=== PATIENT | female | born 1940 | race Caucasian/White ===

== ENCOUNTER → 2017-07-17 | Outpatient (CLI) | payer BC | END | disposition home or self-care (01) | LOC: C.RDSM 15:11 | PROVIDERS: ATTEND Orthopaedic Surgery | DX: R52 Pain, unspecified (principal) ==

== ENCOUNTER 2022-04-01 06:52 | Observation (INO) ==
[2022-04-01] MEDS ORDERED: niCARdipine HCL INJ 2.5 MG/ML 10 ML AMP ONE (07:21)
[2022-04-01] MEDS ORDERED: HEPARIN (PORCINE) 1000 UNIT/ML 10 ML (CATH LAB USE ONLY) ONE (07:21)
[2022-04-01] MEDS ORDERED: NITROGLYCERIN/D5W 100MCG/ML 20ML SYR ONE (07:21)
--- NOTE | 2022-04-01 08:30 | Pre Anesthesia Assessment ---
Date of Service April 01, 2022 Pre Sedation Assessment Vital Signs Pulse Resp BP Pulse Ox O2 Del Method 04/01/22 07:12 71 16 170/82 H 98 Room Air Cardiovascular + regular rate and + regular rhythm + S1 normal, + S2 normal and + murmur + femoral pulses present and + radial pulses present; no JVD no edema Respiratory normal respiratory effort, lungs clear to auscultation Pre-Sedation Airway Assessment Smoking Status: Never smoker Short, Thick Neck: No Thyromental Distance: > or= 3.5 Finger Breadths Oral Cavity: + WNL Mallampati Class: III ASA: ASA3 NPO Status Date of Last Intake of Fluids: 03/31/22 Time of Last Intake of Fluids: 20:00 Date of Last Intake of Solid Food: 03/31/22 Time of Last Intake of Solid Foods: 20:00 Notes The planned sedation has been discussed with the patient. Informed Consent was obtained. I have identified the patient, determined the appropriateness of sedation and have assessed the patient immediately prior to the procedure. All medicine(s) and interventions are by my order.
--- NOTE | 2022-04-01 08:31 | History & Physical Bridge Note ---
Date of Service April 01, 2022 History & Physical Bridge Note I have examined the patient, reviewed the History & Physical and in the interval since the performance of the History & Physical I have noted the following changes of clinical significance: no changes noted
[2022-04-01] MEDS ORDERED: MIDAZOLAM HCL 1 MG/ML 2ML VIAL ONE (08:38)
[2022-04-01] MEDS ORDERED: fentaNYL citrate 100 MCG/2 ML VIAL ONE (08:38)
--- NOTE | 2022-04-01 09:24 | Cardiac Catheterization ---
Cardiac Cath Procedure Brief Procedure Date April 01, 2022 Pre-Procedure Diagnosis Pre-Procedure Diagnosis: Angina and Positive Stress Test AUC Score AUC Score: 7 Post-Procedure Diagnosis Post-Procedure Diagnosis: Severe CAD Procedure(s) Performed Procedure(s) Performed: Coronary Angiography and Left Heart Cath Private Branch Exchange Operator Jb Mendoza MD Profiling Machine Setup Operator(s) Morteza Plummer Estimated Blood Loss Estimated Blood Loss: <15cc Medication(s) Medication(s): Fentanyl (12.5 mcg IV), Heparin (5000 units IV), Lidocaine 1% (Local infiltration access site), Nicardipine (250 mcg intra-arterial after arterial sheath insertion) and Versed (1 mg IV) Preliminary Findings Right dominant coronary anatomy Moderate diffuse coronary atherosclerosis all vessels Left anterior descending with moderate eccentric lesion at D1 S1 Right coronary artery very large caliber vessel with ectasia, eccentric 80% stenosis proximal right coronary artery, 50% mid Normal left end-diastolic pressure Recommendations Recommendations: Management Recommendatons (Patient will be referred for FFR interrogation of the mid left anterior descending,possible right coronary intervention) Specimens Specimens: None Fluids (cc crystalloids) Fluids (cc crystalloids): 75 Anesthesia Start time: , stop time: 04 21 Getachew Abrams RN Procedural Complication(s) None
[2022-04-01] MEDS ORDERED: ADENOSINE IV SOLN 3 MG/ML 20 ML VIAL IV ONE (09:29)
--- NOTE | 2022-04-01 09:52 | Cardiac Catheterization ---
Cardiac Cath Procedure Full Procedure Date April 01, 2022 Pre-Procedure Diagnosis Pre-Procedure Diagnosis: Angina and Positive Stress Test AUC Score AUC Score: 7 Post-Procedure Diagnosis Post-Procedure Diagnosis: Severe CAD Procedure(s) Performed Procedure(s) Performed: Coronary Angiography and Left Heart Cath Interactive Media Designer Jb Mendoza MD X Ray Tech(s) Morteza Plummer Estimated Blood Loss Estimated Blood Loss: <15cc Medication(s) Medication(s): Fentanyl (12.5 mcg IV), Heparin (5000 units IV), Lidocaine 1% (Local infiltration access site), Nicardipine (250 mcg intra-arterial after arterial sheath insertion) and Versed (1 mg IV) Summary of Findings Impression: Right dominant coronary anatomy Diffuse coronary atherosclerosis moderate all vessels Moderate atherosclerosis proximal left anterior descending 40 to 50% involving origin of diagonal Small to moderate sized first diagonal with diffuse disease Large-caliber right coronary artery with eccentric and ectatic disease 80% in proximal portion with additional disease of 60% mid vessel 70% PDA Plan: Patient referred for FFR of proximal LAD, right coronary intervention Procedures: Left heart catheterization, coronary angiography Access: Right radial Catheters: Long 6 Finnish radial sheath, 5 Finnish [place] ,5 Finnish JR 5, 5 Finnish straight pigtail Procedural note: Moderate tortuosity, right subclavian/innominate artery Hemodynamics Rest Ao:: 115/56/80 Final Ao: 140/60 LV: 144/3 Recommendations Recommendations: Management Recommendatons (Patient will be referred for FFR interrogation of the mid left anterior descending,possible right coronary intervention) Specimens Specimens: None Radiation Exposure (mGy) 1095 Contrast (mls) 80 Fluids (cc crystalloids) Fluids (cc crystalloids): 75 Anesthesia Start time: , stop time: 04 21 Getachew Abrams RN Procedural Complication(s) None I attest to the content of the Intraoperative Record and any orders documented therein. Any exceptions are noted below. 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 Cardiovascular risk factors include radiation to the chest with prior breast carcinoma CAD Presenation: Positive Stress Test and Stable angina Anginal Classification: CCS III Heart Failure: No Cardiogenic Shock within 24 Hours: No Cardiac Arrest within 24 Hours: No Imaging Studies Past 6 Months: Yes Stress Studies Past 6 Months: Yes Standard Exercise Test: No Stress Echocardiogram: No Stress Testing w/SPECT MPI: Yes - Positive Cardiac CTA: No Coronary Anatomy Dominant: Right Left Main (% Stenosis): Normal LAD (% Stenosis): Proximal (140) D2 (% Stenosis): Proximal (Diffuse disease, small vessel) Circumflex (% Stenosis): Proximal (30-40) OM1 (% Stenosis): Normal OM2 (% Stenosis): Normal RCA (% Stenosis): Proximal (Eccentric 80 with ectasia) and Mid (60) R PDA (% Stenosis): Proximal (60-70) Left Ventricular Angiography EF (%): N/A Diagnostic Physicians Name: Jb Mendoza MD Status: Elective Closure Device Percutaneous Entry Location: Radial Recommendations: Management Recommendatons (Patient will be referred for FFR interrogation of the mid left anterior descending,possible right coronary intervention)
[2022-04-01] MEDS ORDERED: CLOPIDOGREL BISULFATE 300 MG TAB ONE (10:12)
[2022-04-01] MEDS ORDERED: ONDANSETRON INJ 2 MG/ML 2 ML VIAL IV PRN (11:09)
[2022-04-01] MEDS ORDERED: ACETAMINOPHEN 500 MG TAB PO PRN (11:13)
[2022-04-01] MEDS ORDERED: SODIUM CHLORIDE 0.9% 1000ML 1,000 ML IV SCH (11:15)
--- NOTE | 2022-04-01 11:18 | Post Anesthesia Assessment ---
Date of Service April 01, 2022 Post Sedation Assessment Vital Signs Pulse Resp BP Pulse Ox O2 Del Method 04/01/22 10:55 59 L 20 152/82 H 99 Room Air 04/01/22 10:40 59 L 20 152/82 H 99 Room Air 04/01/22 10:25 58 L 18 146/75 H 95 Room Air 04/01/22 07:12 71 16 170/82 H 98 Room Air Recovery Score Activity: Moves 4 extremities Respiration: Deep Breath/Cough Circulation: +/-20% PreAnes Value Consciousness: Fully Awake Oxygen Saturation: > 92% On Room Air Post Anesthesia Score: 10 Discharge Sedation Level of Care: Fast Track Phase II Post Sedation Plan On clinical assessment, the patient appears to have tolerated the sedation without complications. Patient is recovering as anticipated. Patient will continue to be monitored by nursing and may be discharged when jacqueline tion discharge criteria are met per below protocol. Upon Completions of procedure up to 15 minutes continue every 5 minute vital signs and the P.A.R. score; then discharge to a Phase I or Fast Track to Phase II per the following guidelines: * Discharge Patient to appropriate Phase II area if PAR is 8 or greater or return to pre- procedure baseline. The post - procedure orders will be as directed. * If PAR score is less than 8 or not return to pre-procedure baseline then patient will follow Phase I monitoring till PAR is reached for Phase II. The Phase I may be done in procedure room or may call to secure a Phase I area. * If naloxone or flumazenil are used for reversal, hold in Phase I for continued monitoring from when last reversal dose was given for a minimum of 60 minutes or longer pending the nurse and/or physician discretion of patient condition before discharge to Phase II. Please call the Sedation Physician to re-evaluate and complete post-note for discharge to Phase II area. Do NOT discharge from procedure sedation or Phase 1 until post- sedation evaluation note is complete by procedure /sedation MD Sedation Discharge Instructions to be given to the patient at discharge to home.
--- NOTE | 2022-04-01 11:20 | Post Operative Brief Note ---
Cardiology Brief Post Op Date of Surgery April 01, 2022 Pre & Post Diagnosis CAD Procedure PCI Hvac Operations Technician Cj Clayton MD Rubber Factory Worker Deibler Estimated Blood Loss 10 Findings See Below Moderate nonobstructive proximal LAD disease (FFR 0.94). Successful PCI of proximal to mid RCA with single MULUGETA (4.0 x 34 mm [place]) Anesthesia Type RN Sedation Complications none Disposition Accompanied Patient To Recovery: No Disposition: PCU Overlapping Procedure I was present for: the critical portions of procedure. I was immediately available: during the entire case. Back up surgeon: was not required during procedure.
[2022-04-01] MEDS ORDERED: LIDOCAINE 1% LOCAL 20 ML VIAL ONE (11:48)
--- NOTE | 2022-04-01 12:09 | Hospitalist Consultation ---
Date of Consultation April 01, 2022 Assessment & Plan (1) CAD (coronary artery disease): (2) S/P right coronary artery (RCA) stent placement: - S/p cardiac cath via R wrist by Dr. Clayton and Dr. Mendoza today , found to have mid RCA lesions dilated and MULUGETA 4.0 x34 mm [place]. 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 Whyte. If you have any questions or concerns please do not hesitate to call. At this time medicine will follow along. Supervising Physician Co-Signing Physician Notes 82 yo F w/ PMH of HTN, HLD, breast Ca s/p mastectomy/chemoradiation presented to our hosp for scheduled Heart Cath after positive lexiscan stress test as OP. She received RCA stent. ROS is negative and patient is chest pain free at bedside exam. Pt being followed by cardiology. Resume other home meds as able. Will get labs in AM. Monitor over tele. Upon Exam GENERAL: Alert and oriented x3. NAD, on RA. Class II obesity. HEENT: No pallor, no icterus. Pupils equal, round and reactive to light. Oral mucosa moist. NECK: No JVD, no neck masses. HEART: S1 and S2 heard. Regular rate and rhythm. No murmur, no gallop. RESPIRATORY SYSTEM: Normal AP diameter. No accessory muscle use. No wheezing, no crackles. ABDOMEN: Soft, bowel sounds present, nontender, no distention. CENTRAL NERVOUS SYSTEM: No facial droop. Speech is clear. Obeys simple commands. Moves extremities. EXTREMITIES: No edema, no erythema seen. I have seen and examined the patient and have discussed the case with the provider above. I agree with the assessment and plan as stated. History of Present Illness Reason for Consultation: Medical management Requesting Physician: Dr. Reji Ramirez Attending Physician: Jb Mendoza MD History of Present Illness This is an 82 yo F with PMhx of HTN, HLD, PVCs, hx of breast cancer in 2019 s/p lumpectomy, mastectomy, chemo x 6 months and 30 XRT treatments, who presents to the hospital after scheduled cardiac catheterization by Dr. Mendoza and Dr. Clayton. She underwent Lexiscan stress test to evaluate ischemia given her symptoms for possible angina in the beginning of March. She had described having chest pain, neck pain and jaw pain and reported that she has these symptoms. Occasionally, last time was around her visit in January. She does report fatigue with activities and some dyspnea when doing exertional activity such as climbing stairs. Currently she denies any chest pain, shortness of breath, palpitations, lightheadedness or dizziness, orthopnea or swelling. She has been taking baby aspirin, statin and losartan. Metoprolol succinate 25 mg was added to her regimen on 03/13/2022. She did not take his medication this morning as directed. She feels quite well status post cardiac cath currently. Allergies Allergy/AdvReac Type Severity Reaction Status Date / Time No Known Allergies Allergy Verified 04/01/22 07:00 Home Medications Medication Instructions Recorded Confirmed Type acetaminophen 500 mg tablet 1,000 mg PO Q4H PRN Pain 05/31/19 04/01/22 History (Tylenol Extra Strength) aspirin 81 mg tablet,delayed 81 mg PO DAILY 05/31/19 04/01/22 History release (Adult Aspirin Regimen) atorvastatin 40 mg tablet 40 mg PO DAILY 05/31/19 04/01/22 History diphenhydramine HCl 25 mg tablet 25 mg PO Q6H PRN Allergic Reaction 05/31/19 04/01/22 History (Benadryl Allergy) levothyroxine 112 mcg tablet 112 mcg PO DAILY 05/31/19 04/01/22 History (Levoxyl) losartan 25 mg tablet (Cozaar) 25 mg PO DAILY 05/31/19 04/01/22 History melatonin 3 mg capsule 3 mg PO HS PRN Insomnia 05/31/19 04/01/22 History meloxicam 15 mg tablet 15 mg PO DAILY PRN pain 05/31/19 04/01/22 History sertraline 50 mg tablet (Zoloft) 50 mg PO DAILY 05/31/19 04/01/22 History calcium carb-vit D2-minerals 1 tab PO DAILY 04/01/22 04/01/22 History gabapentin 300 mg capsule 300 mg PO HS 04/01/22 04/01/22 History letrozole 2.5 mg tablet (Femara) 2.5 mg PO DAILY 04/01/22 04/01/22 History metoprolol succinate 25 mg 25 mg PO DAILY 04/01/22 04/01/22 History tablet,extended release 24 hr pantoprazole 40 mg tablet,delayed 40 mg PO DAILY 04/01/22 04/01/22 History release Patient History Medical History (Updated 04/01/22 @ 13:05 by Berenice Turner PA-C) Breast cancer Right - Diagnosed 08/06/19 - Invasive Ductal CA - ER/ND+, HER2- Depression Dyslipidemia History of chemotherapy AC x 4 (Every 3 weeks) followed by Taxol x 12 (weekly) with Dr. 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 Brother Melanoma Daughter No problems noted. Social History (Updated 05/31/19 @ 09:37 by Josy Hutchins RN) Smoking Status: Never smoker Hx Alcohol Use: No Hx Substance Use: No Preferred Language: Peruvian Communication Ability: Effective Visual Impairment: Limited Hearing Ability: Hard of Hearing Bead Supervisor Required: No Beliefs That Will Affect Care: None marital status: Current Living Situation: Family Current Living Situation Comment: Grandson lives with patient current occupational status: retired current occupation: [employer] Other Information That Helps Us Care for You: No Feels Safe at Home: Yes Safety Concerns: Feels Safe At This Time Childhood Exposure to Second-Hand Smoke: Yes (Father smoked in home ) caffeine: Yes (Diet Soda Daily ) during the past year weight has: decreased > 10 lbs Dental Care, Regularly: Yes Assistive Devices: None Review of Systems Review of Systems: Constitutional: No fever, sweats or chills Eyes: No diplopia, no worsening or blurred vision ENT: normal hearing, no trouble swallowing Respiratory: No cough, sputum, dyspnea at rest or on exertion Cardiovascular: No chest pain, tightness or palpitations Abdomen: No pain, nausea, vomiting, diarrhea or constipation Musculoskeletal: No joint pain, calf pain, swelling Neurologic: No weakness, numbness/tingling, or balance problems Psychiatric: No anxiety or depression Skin: No rash or itch Physical Exam Physical Exam: General: awake, alert, no apparent distress Head: Normocephalic, atraumatic ENT: PERRL, EOMI, no pharyngeal exudate, mucous membranes moist Chest: Clear to auscultation, on room air, no adventitious breath sounds Cardiac: Regular rate and rhythm, no murmur, no JVD, normal peripheral pulses, good capillary refill Abdominal: NABS x 4 quadrants, soft, nondistended, nontender to palpation, no rebound or guarding Extremities: TR band on right wrist, otherwise normal inspection, no peripheral edema or erythema, calfs nontender to palpation Psych: Normal mood and affect Neuro: AAO x 3, strength intact bilaterally and rated 5/5, no motor deficits, speech is clear, no peripheral sensory deficits Results & Data Results & Data ([facility]) Vital Signs (Past 12 Hours) Vital Signs Pulse Resp BP Pulse Ox O2 Del Method 04/01/22 11:55 63 20 156/100 H 98 Room Air 04/01/22 11:40 86 20 158/109 H 98 Room Air 04/01/22 11:25 76 20 173/111 H 99 Room Air 04/01/22 11:10 60 20 158/77 H 99 Room Air 04/01/22 10:55 59 L 20 152/82 H 99 Room Air 04/01/22 10:40 62 20 152/82 H 99 Room Air 04/01/22 10:25 58 L 18 146/75 H 95 Room Air 04/01/22 07:12 71 16 170/82 H 98 Room Air
--- NOTE | 2022-04-01 12:21 | Cardiac Catheterization ---
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 Cardiac Status Clinical evaluation leading to the procedure CAD Presenation: Positive Stress Test Anginal Classification: CCS III Diagnostic Physicians Name: Cj Clayton MD Closure Device Recommendations: PCI without planned CABG Cardiac Cath Procedure Full Procedure Date April 01, 2022 Pre-Procedure Diagnosis Pre-Procedure Diagnosis: Angina, Positive Stress Test and CAD AUC Score AUC Score: 8 Post-Procedure Diagnosis Post-Procedure Diagnosis: Severe CAD and Successful PCI Procedure(s) Performed Procedure(s) Performed: Coronary Angiography, Drug Eluting Stent and Fractional Flow [place] Dental Scheduling Coordinator Cj Clayton MD Patient Scheduler(s) [place] Estimated Blood Loss Estimated Blood Loss: <15cc Medication(s) Medication(s): Clopidogrel, Fentanyl (12.5 mcg IV), Heparin (5000 units IV), Nicardipine (250 mcg intra-arterial after arterial sheath insertion), Nitroglycerin and Versed (1 mg IV) Summary of Findings Indication: Abnormal stress test Access: 6 Fr right radial artery Catheters: EBU 3.5 guide, AR-1 guide Findings: For full details of patient's coronary angiography please see cath report dictated by Dr. Mendoza. Briefly, patient found to have mild to moderate proximal LAD disease and severe mid RCA disease. Decision to FFR LAD and proceed with PCI of RCA LAD disease nonobstructive. FFR of LAD procedure: -Left main cannulated with EBU 3.5 guide -BMW wire placed into distal LAD -ACIST Catheter placed across stenosis -Pd/Pa 0.98 -FFR 0.94 -Coronary angiography revealed no apparent complications post wire/catheter removal -- PCI of RCA-- Antithrombotic therapy: Heparin, clopidogrel Procedure: RCA cannulated with AR-1 guide Pre-procedure flow ANUP 3 BMW wire passed across lesion into distal vessel Mid RCA lesions predilated with 3.0 compliant balloon Dilated lesions stented with 4.0 x 34 mm [place] drug-eluting stent Stent post-dilated with 4.5 noncompliant balloon IC vasodilators administered for spasm Post procedure ANUP 3 flow, stent well expanded with minimal residual stenosis and no apparent cardiac complications. Arterial Closure: TR band Summary: 1. Nonobstructive mild to moderate proximal LAD disease (FFR 0.94). 2. Successful PCI of proximal to mid RCA with single drug-eluting stent (4.0 x 34 mm [place]; postdilated with 4.5 NC). Recommendations: To PCU for continued monitoring Loaded with clopidogrel 600 mg in Tile Setter Apprentice Continue dual-antiplatelet therapy for at least 6 months Continue statin, and ASCVD risk factor modification Consult cardiac Rehab Hemodynamics Rest Ao:: 146/68/96 Final Ao: 140/52/78 LV: -- Recommendations Recommendations: PCI without planned CABG Specimens Specimens: None Radiation Exposure (mGy) 2962 Contrast (mls) 130 Anesthesia Start time: 0933, stop time: 1015 Getachew Abrams RN Procedural Complication(s) None Disposition PCU I attest to the content of the Intraoperative Record and any orders documented therein. Any exceptions are noted below. [facility] Card Cath Procedure Codes Cardiac Catheterization Procedure 1: Cardiovascular Cath Procedures: 75594 (Doppler) Pressure Wire Moderate Sedation Procedure 1: Sedation/Anesthesia: 65643 Mod Sedation by the same physician; Ea [id number] Minutes Stenting Procedure 1: Cardiovascular Stent Procedures: 87985 Perc transcatheter placement of intracoronary stent(s), with ang PG Care Time/CCT Total # of Minutes Spent Total Time Spent with Patient: Total time spent is greater than 50% in coordination of care (as documented) at patient's floor/unit and/or counseling patient:
[2022-04-01] MEDS ORDERED: MELATONIN 3 MG TAB PO PRN (12:42)
--- NOTE | 2022-04-01 13:39 | Electrocardiogram Report ---
Test Reason : Blood Pressure : / mmHG Vent. Rate : 065 BPM Atrial Rate : 065 BPM P-R Int : 164 ms QRS Dur : 084 ms QT Int : 394 ms P-R-T Axes : 048 -36 -02 degrees QTc Int : 409 ms Normal sinus rhythm Left axis deviation Diffuse Minor Nonspecific T wave abnormality Possible Old Inferior infarct Abnormal ECG No previous ECGs available Confirmed by Joseph Frazier ([id number]) on 04/01/2022 1:38:59 PM Referred By: Nafisa Wetzel Confirmed By:Joseph Frazier
[2022-04-01] MEDS ORDERED: GABAPENTIN 300 MG CAP PO SCH (21:00)
[2022-04-02 05:23] LABS: Basophils # (auto) 0.03 K/uL (0-0.2); Basophils % (auto) 0.5 %; Eosinophils # (auto) 0.14 K/uL (0-0.50); Eosinophils % (auto) 2.1 %; Hematocrit (blood only) 35.3 % (34.1-44.9); Hemoglobin 11.5 g/dl (12.0-16.0); Immature Granulocytes # (auto) 0.01 K/uL (0.00-0.02); Immature Granulocytes % (auto) 0.2 %; Lymphocytes # (auto) 1.03 K/uL (1.2-3.4); Lymphocytes % (auto) 15.5 %; Mean Corpuscular Hemoglobin 31.8 pg (25.0-34.0); Mean Corpuscular Hgb Conc 32.6 g/dL (32.0-36.0); Mean Corpuscular Volume 97.5 fL (80.0-100.0); Monocytes % (auto) 12.1 %; Neutrophils # (auto) 4.62 K/uL (1.4-6.5); Neutrophils % (auto) 69.6 %; Platelet Count 190 K/uL (130-400); RDW Coefficient of Variation 13.7 % (11.5-14.5); RDW Standard Deviation 49.9 fL (36.4-46.3); Red Blood Count 3.62 M/uL (3.93-5.22); White Blood Count 6.63 K/ul (4.8-10.8)
[2022-04-02 05:37] LABS: BUN Creatinine Ratio 20.5 (10-20); Calcium 8.8 mg/dl (8.5-10.1); Creatinine Clr Calc Pharmacy 59.3 ml/min; Est GFR (African American) 82.6 ml/min; Est GFR (Non-African American) 71.3 ml/min; Potassium 4.3 mmol/L (3.5-5.1)
[2022-04-02] MEDS ORDERED: ATORVASTATIN 40 MG TAB PO SCH (09:00)
[2022-04-02] MEDS ORDERED: CLOPIDOGREL BISULFATE 75 MG TAB PO SCH (09:00)
[2022-04-02] MEDS ORDERED: LEVOTHYROXINE SODIUM 112 MCG TABLET PO SCH (09:00)
[2022-04-02] MEDS ORDERED: LETROZOLE 2.5 MG TAB PO SCH (09:00)
[2022-04-02] MEDS ORDERED: ASPIRIN 81 MG ECTAB PO SCH (09:00)
[2022-04-02] MEDS ORDERED: LOSARTAN POTASSIUM 25 MG TAB PO SCH (09:00)
[2022-04-02] MEDS ORDERED: PANTOprazole 40 MG TAB PO SCH (09:00)
--- NOTE | 2022-04-02 10:09 | Cardiology Progress Note ---
Date of Service April 02, 2022 Assessment & Plan (1) S/P right coronary artery (RCA) stent placement: (2) CAD (coronary artery disease): (3) HTN (hypertension): (4) HLD (hyperlipidemia): Plan Patient is an 82-year-old female who was referred for symptoms of fatigue exertional angina and abnormal stress testing found to have a complex right coronary lesion on coronary angiography. The patient underwent successful coronary invention proximal mid RCA with good tolerance. No current complaints or symptoms Patient stable for discharge. Patient on guideline directed medical regimen. With added clopidogrel. Discussed dual antiplatelet therapy had to be continued preferably 6 months without interruption. Will need to follow with cardiology as scheduled. Cardiac rehab consultation to be placed at that interim Admission and Anticipated Discharge Date Admission Date: April 01, 2022 Subjective Patient was seen and examined, chart, medications, telemetry reviewed. No issues or concerns overnight slept well overall feels improved. No bleeding issues. No chest pain or discomfort. No arrhythmias on telemetry. Right radial access site healing well Review of Systems Review of Systems: All systems reviewed & are unremarkable except as noted in Subjective Physical Exam Constitutional: WD/WN, vitals as above Eyes: PERRL, conjunctivae normal, anicteric sclerae ENMT: external ear and nose normal, oropharynx normal Mallampati Class: III Neck: trachea midline, no thyromegaly Respiratory: normal respiratory effort, lungs clear to auscultation Cardiovascular: Rate/Rhythm: regular rate and regular rhythm Heart Sounds: normal S1, normal S2 and + murmur Vessels: femoral pulses present and radial pulses present (Right radial access site healing well); no JVD Extremities: no edema Results & Data ([facility]) Vital Signs (Past 12 Hours) Vital Signs Temp Pulse Pulse Resp BP Pulse Ox O2 Del Method 04/02/22 07:25 36.8 C 69 18 125/74 92 Room Air 04/02/22 03:00 36.5 C 68 18 152/80 H 94 Room Air 04/01/22 23:58 70 04/01/22 23:21 36.6 C 72 18 130/80 93 Room Air Laboratory Results Laboratory Results - last 24 hr 04/01/22 04/02/22 04/02/22 10:01 04:41 04:41 WBC 6.63 RBC 3.62 L Hgb 11.5 L Hct 35.3 MCV 97.5 MCH 31.8 MCHC 32.6 RDW Std Deviation 49.9 H RDW Coeff of [place] 13.7 Plt Count 190 MPV 9.0 L Immature Gran % (Auto) 0.2 Neut % (Auto) 69.6 Lymph % (Auto) 15.5 [place] % (Auto) 12.1 Eos % (Auto) 2.1 Baso % (Auto) 0.5 Neut # (Auto) 4.62 Lymph # (Auto) 1.03 L [place] # (Auto) 0.80 Eos # (Auto) 0.14 Baso # (Auto) 0.03 Immature Gran # (Auto) 0.01 Activ Coag Time Kaolin 277 H Sodium 140 Potassium 4.3 Chloride 105 Carbon Dioxide 30 Anion Gap 5 BUN 16 Creatinine 0.78 Est Cr Clr Drug Dosing 59.3 Est GFR ( Amer) 82.6 Est GFR (Non-Af Amer) 71.3 BUN/Creatinine Ratio 20.5 H Glucose 102 H Calcium 8.8
--- NOTE | 2022-04-02 11:32 | Discharge Summary ---
Date of Service April 02, 2022 Admission HPI Per Admitting Provider Patient is an 82-year-old female with symptoms of exertional shortness of breath and fatigue consistent with angina by history who was placed on optimal guideline directed medical regimen and underwent stress nuclear imaging. Study reflected stress-induced ischemia with patient having persistent symptoms of exertional fatigue and shortness of breath. She was referred for diagnostic coronary angiography Admission Exam (Per Admitting) Constitutional WD/WN, vitals as above Eyes PERRL, conjunctivae normal, anicteric sclerae ENMT external ear and nose normal, oropharynx normal Mallampati Class: III Neck trachea midline, no thyromegaly Respiratory normal respiratory effort, lungs clear to auscultation Cardiovascular Rate/Rhythm: regular rate and regular rhythm Heart Sounds: normal S1, normal S2 and + murmur Vessels: femoral pulses present and radial pulses present (Right radial access site healing well); no JVD Extremities: no edema Specialty Data Cardiology Cardiac catheterization 04/01/2022Impression: Right dominant coronary anatomy Diffuse coronary atherosclerosis moderate all vessels Moderate atherosclerosis proximal left anterior descending 40 to 50% involving origin of diagonal Small to moderate sized first diagonal with diffuse disease Large-caliber right coronary artery with eccentric and ectatic disease 80% in proximal portion with additional disease of 60% mid vessel 70% PDA Plan: Patient referred for FFR of proximal LAD, right coronary intervention Discharge Data Procedures Performed Operation Date: 04/01/22 08:00 Actual Procedures p Cath, Left with Cors and Vent - Jb Mendoza MD s Cineradiography w/Routine Exam - Jb Mendoza MD s Fraction Flow [place] SGL Ves - Marvel Clayton MD s Drug Eluting Stent SGl Vessel - Marvel Clayton MD Hospital Course (1) S/P right coronary artery (RCA) stent placement: (2) CAD (coronary artery disease): (3) HTN (hypertension): (4) HLD (hyperlipidemia): Plan Patient is an 82-year-old female who was referred for symptoms of fatigue exertional angina and abnormal stress testing found to have a complex right coronary lesion on coronary angiography. Moderate disease noted in the proximal left anterior descending interrogated by FFR without obstruction noted. The patient underwent successful coronary invention proximal mid RCA with good tolerance. No current complaints or symptoms Patient stable for discharge. Patient on guideline directed medical regimen. With added clopidogrel. Discussed dual antiplatelet therapy had to be continued preferably 6 months without interruption. Will need to follow with cardiology as scheduled. Cardiac rehab consultation to be placed at that interim
--- NOTE | 2022-04-02 11:56 | Hospitalist Progress Note ---
Date of Service April 02, 2022 Assessment & Plan (1) CAD (coronary artery disease): (2) S/P right coronary artery (RCA) stent placement: Plan: - S/p cardiac cath via R wrist by Dr. Clayton and Dr. Mendoza 04/01/22 , found to have mid RCA lesions dilated and MULUGETA 4.0 x34 mm [place]. - Pt stable hemodynamically, patient with no chest pain. - Loaded with plavix s/p cath, continue aspirin, losartan, metoprolol and Plavix. Cardiology managing. 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 Thank you for involving us in the care of Mrs. Whyte. If you have any questions or concerns please do not hesitate to call. Admission and Anticipated Discharge Date Admission Date: April 01, 2022 Subjective Patient seen and examined at bedside for follow-up of CAD status post right coronary artery stent placement. Patient was sitting up in bed, on room air, NAD, no new acute events overnight per patient. Patient denies any chest pain or headache or chills or fever or dizziness or palpitation or other review of symptoms. Patient reports eating okay and moving bowels okay. Physical Exam Physical Exam: GENERAL: Alert and oriented x3. NAD, on RA. Class II obesity. HEENT: No pallor, no icterus. Pupils equal, round and reactive to light. Oral mucosa moist. NECK: No JVD, no neck masses. HEART: S1 and S2 heard. Regular rate and rhythm. No murmur, no gallop. RESPIRATORY SYSTEM: Normal AP diameter. No accessory muscle use. No wheezing, no crackles. ABDOMEN: Soft, bowel sounds present, nontender, no distention. CENTRAL NERVOUS SYSTEM: No facial droop. Speech is clear. Obeys simple commands. Moves extremities. EXTREMITIES: No edema, no erythema seen. Results & Data Results & Data ([facility]) Vital Signs (Past 12 Hours) Vital Signs Temp Pulse Pulse Resp BP Pulse Ox O2 Del Method 04/02/22 11:47 36.8 C 69 18 125/74 92 04/02/22 11:26 Room Air 04/02/22 07:25 36.8 C 69 18 125/74 92 Room Air 04/02/22 03:00 36.5 C 68 18 152/80 H 94 Room Air 04/01/22 23:58 70
[2022-04-03] MEDS ORDERED: LEVOTHYROXINE SODIUM 112 MCG TABLET PO SCH (06:30)
== END 2022-04-02 13:05 | disposition home or self-care (01) ==
LOC: CC 06:52 → 4W 06:52